=== PATIENT | male | born 1945 | race Caucasian/White ===

== ENCOUNTER 2023-01-15 07:43 | Day surgery (SDC) | payer MEDICARE ==
[~2023-01-15] VITALS: Ht 180.3 cm; Wt 86.0 kg
[~2023-01-15 07:43] MED LIST: ALBU.083IS IH; BECL80OI INH; CRUTCH2 USE; HYDACE5 PO; LEVSOD125 PO
[2023-01-15] MEDS ORDERED: Lisinopril2.5 MG (08:31)
[2023-01-15 10:53] VITALS: BP 135/79
== END 2023-01-15 11:01 | disposition home or self-care (01) ==
LOC: ORSCSDS 07:43
PROVIDERS: Specialist
PROC: 0DBK8ZX Excision of Ascending Colon, Via Natural or Artificial Opening Endoscopic, Diagnostic (ICD-10-PCS; principal; 2023-01-15 09:15)
PROC: 0DBL8ZX Excision of Transverse Colon, Via Natural or Artificial Opening Endoscopic, Diagnostic (ICD-10-PCS; principal; 2023-01-15 09:15)
PROC: 0DBN8ZX Excision of Sigmoid Colon, Via Natural or Artificial Opening Endoscopic, Diagnostic (ICD-10-PCS; principal; 2023-01-15 09:15)
DX: Z12.11 Encounter for screening for malignant neoplasm of colon (principal); R19.5 Other fecal abnormalities; D12.3 Benign neoplasm of transverse colon; D12.2 Benign neoplasm of ascending colon; D12.5 Benign neoplasm of sigmoid colon; J44.9 Chronic obstructive pulmonary disease, unspecified; E03.9 Hypothyroidism, unspecified; E78.5 Hyperlipidemia, unspecified; J45.909 Unspecified asthma, uncomplicated; I10 Essential (primary) hypertension; Z79.899 Other long term (current) drug therapy; Z87.891 Personal history of nicotine dependence
CPT/HCPCS: 82947; 88305; J2704; J7120

== ENCOUNTER 2025-06-02 12:11 | Day surgery (SDC) | payer MEDICARE ==
[~2025-06-02] VITALS: Ht 180.3 cm; Wt 88.5 kg
[~2025-06-02 12:11] MED LIST changes: +Balanced Salt Epinephrine Irrigation Solution 500 mL IR SCH; +Lisinopril2.5 MG; +Moxifloxacin HCL 0.5 MG/0.1 ML 0.4MLSYR RIGHTEYE SCH; +Ondansetron 4 MG SoluTab MM PRN; +PHENYLEPHRINE\\TROPICAMIDE\\TETRACAINE OPHTHALMIC DILATING SOLN RIGHTEYE PRN; +Povidone-Iodine 450 DROP/30 ML Solution ONE; +Povidone-Iodine 450 DROP/30 ML Solution RIGHTEYE SCH; +Tetracaine HCl/Pf 0.5% Opth Soln 4 ml ONE; +Triamcinolone Inj Susp 40 MG / ML 1ML Vial INJ SCH; +Triamcinolone Inj Susp 40 MG / ML 1ML Vial ONE
[2025-06-02] MEDS ORDERED: SYMBICORT 16010.2 GM INH (13:24)
[2025-06-02] MEDS ORDERED: METF500 PO (13:26)
[2025-06-02] MEDS ORDERED: ASCO500 PO (13:27)
--- NOTE | 2025-06-02 13:34 | NUR ---
06/02/25 1334 Marti Elliott PT C/O ANXIETY 01/31 UPON ARRIVAL. 10MG VALIUM GIVEN PER DR'S ORDERS. PT IS ON PULSE OX; O2 SATS ARE 98% ON ROOM AIR. CALL LIGHT IN REACH. DROP OF TETRACAINE GIVEN AT 1318, PLEDGET PLACED AT 1320. PT TOLERATED WELL.
--- NOTE | 2025-06-02 13:52 | NUR ---
06/02/25 1352 Lani Williamson 1347 BP:171/93 HR:81 O2:98 RESP:16
[2025-06-02 14:15] VITALS: BP 175/94
== END 2025-06-02 13:07 | disposition home or self-care (01) ==
LOC: ORSCSDS 12:11
PROVIDERS: Ophthalmology
PROC: 08RJ3JZ Replacement of Right Lens with Synthetic Substitute, Percutaneous Approach (ICD-10-PCS; principal; 2025-06-02 14:30)
DX: H25.811 Combined forms of age-related cataract, right eye (principal); J44.89 Other specified chronic obstructive pulmonary disease; E03.9 Hypothyroidism, unspecified; Z79.84 Long term (current) use of oral hypoglycemic drugs; Z79.899 Other long term (current) drug therapy
CPT/HCPCS: A9270; J3301; V2632